=== PATIENT | male | born 1950 | race Caucasian/White ===

== ENCOUNTER → 2017-01-04 07:25 | Outpatient (CLI) | payer MEDICARE, BC | END | disposition home or self-care (01) | LOC: D.CT 07:25 | DX: R10.9 Unspecified abdominal pain (principal) ==

== ENCOUNTER 2017-01-11 21:51 | Emergency (ER) | payer MEDICARE, BC | END 2017-01-11 23:40 | disposition left against medical advice (07) | LOC: D.ER 21:51 | DX: R10.84 Generalized abdominal pain (principal) ==

== ENCOUNTER → 2017-02-02 08:06 | Outpatient (CLI) | payer MEDICARE, BC ==
[2017-02-03 06:13] LABS: HEPATITIS C ANTIBODY <0.1 (0.0-0.9)
[2017-02-03 09:13] LABS: ALPHA FETOPROTEIN -(TUMOR MRK) 3.5 ng/mL (0.0-8.3)
== END | disposition home or self-care (01) ==
LOC: D.LAB 08:06 → D.RAD 08:45 → D.US 09:00 → D.NM 09:30
PROVIDERS: Internal Medicine Gastroenterology
DX: K85.90 Acute pancreatitis without necrosis or infection, unspecified (principal); R10.11 Right upper quadrant pain; K76.89 Other specified diseases of liver; C61 Malignant neoplasm of prostate; R93.8 Abnormal findings on diagnostic imaging of other specified body structures; K59.00 Constipation, unspecified

== ENCOUNTER → 2017-08-27 07:55 | Outpatient (CLI) | payer MEDICARE, BC | END | disposition home or self-care (01) | LOC: D.US 07:55 | DX: K82.4 Cholesterolosis of gallbladder (principal) ==

== ENCOUNTER → 2017-12-24 10:32 | Outpatient (CLI) | payer MEDICARE, BC ==
[~2017-12-24 10:32] MED LIST: ASPIRIN EC81 M1 PO; FENOFIBRATE160 MG PO; HYDROCODONE-APA1 TAB PO; LOTREL 10-40 M1 EACH PO; MULTIPLE VITAMI1 TA1 PO; TOPROL XL100 MG PO; ZANTAC150 MG PO; ZOCOR40 MG PO
[2018-01-17 08:01] VITALS: BMI 30.3
== END | disposition home or self-care (01) ==
LOC: D.US 10:32
DX: N50.9 Disorder of male genital organs, unspecified (principal)

== ENCOUNTER 2018-01-17 06:50 | Day surgery (SDC) | payer MEDICARE, BC ==
[2018-01-16 13:38] LABS: BASOPHILS 0.2 % (0-2); EOSINOPHILS 2.2 % (0-7); HEMATOCRIT 39.8 % (42.0-54.0); HEMOGLOBIN 13.2 g/dL (13.5-17.5); IMMATURE GRANULOCYTES 0.2 % (0-5); LYMPHOCYTES 34.6 % (15-50); MCH 25.3 pg (26.0-34.0); MCHC 33.2 g/dL (31.0-37.0); MCV 76.2 fL (80.0-100.0); MEAN PLATELET VOLUME 10.1 fL (7.4-10.4); MONOCYTES 7.3 % (2-11); NEUTROPHILS 55.5 % (40-80); PLATELET COUNT 128 10x3/uL (130-400); RBC 5.22 10x6/uL (4.20-6.10); RDW 14.5 % (11.5-14.5); WBC 5.5 10x3/uL (4.8-10.8)
[2018-01-16 13:52] LABS: ANION GAP 14.7 mmol/L (8-16); CALCIUM 8.5 mg/dL (8.5-10.1); CARBON DIOXIDE 23.3 mmol/L (21.0-32.0); CREATININE - SERUM 1.6 mg/dL (0.6-1.3)
[~2018-01-17] VITALS: Ht 175.3 cm; Wt 93.0 kg
--- NOTE | ~2018-01-17 | OP ---
PATIENT NAME: MARTHA SPICER MEDICAL RECORD: [id number] :50 LOCATION:[facility] ADMISSION DATE: SURGEON: AURELIANO BAY MD DATE OF OPERATION: 01/17/2018 PREOPERATIVE DIAGNOSES: 1. Umbilical hernia. 2. Right inguinal hernia. 3. Hypertension. 4. Hyperlipidemia. 5. Chronic pancreatitis. POSTOPERATIVE DIAGNOSES: 1. Umbilical hernia. 2. Right inguinal hernia. 3. Hypertension. 4. Hyperlipidemia. 5. Chronic pancreatitis. PROCEDURE: 1. Umbilical hernia repair without mesh. 2. Right inguinal hernia repair with medium PHS mesh. SURGEON: Aureliano Bay MD REPORT OF PROCEDURE: The patient's right groin and abdomen were prepped and draped in sterile fashion. A semicircular incision was made on the inferior aspect of the umbilicus. Electrocautery was used to dissect through the subcutaneous tissues and through the undersurface of the umbilicus. This freed up a fat-containing hernia sac. The hernia sac was dissected free to the fascial edges. It was noted to be about 1 cm in greatest diameter. The fatty tissue was transected using electrocautery and then placed back into the abdominal cavity. The fascial edges were then closed transversely using interrupted 0 Prolenes times 3. The umbilicus was tacked down with a single interrupted 3-0 Vicryl and the subcutaneous tissues were reapproximated with interrupted 3-0 Vicryl, 7 mL of 0.25% Marcaine without epinephrine were infused into the surrounding tissues, and the skin incision was closed with running subcutaneous 5-0 Monocryl. We then approached the right inguinal region. An oblique incision was made above the inguinal ligament. Electrocautery was used to dissect down through the subcutaneous tissues to the external oblique fascia. This fascia was opened up to the external ring using electrocautery. The spermatic cord was elevated and a Semaj was placed around it. There was no sign of a direct hernia defect, but there was a fat containing indirect hernia defect. This was high ligated with 3-0 silk tie. We then placed this back into the abdominal cavity. An opening was made in the inguinal floor. The preperitoneal space of Retzius was opened up in all directions and a medium PHS mesh was inserted. This was sutured down on all 4 sides using multiple interrupted 0 Vicryls. The ilioinguinal nerve was then found and high ligated. The wound was then irrigated out with normal saline and care was taken to assure there is no sign of any active bleeding. The external oblique fascia was then closed with running 2-0 Vicryl, Adam's was closed with interrupted 3-0 Vicryls, and the skin was closed with running subcutaneous 5-0 Monocryl. A total of 10 mL of 0.25% Marcaine with epinephrine was infused into the surrounding tissues and the 2 wounds were dressed appropriately. OPERATIVE REPORT [id number] MARTHA SPICER COMPLICATIONS: None. CONDITION: Stable. ANESTHESIA: General endotracheal and local. BLOOD LOSS: Minimal. TRANSINT:[id number] Voice Confirmation ID: [id number] DOCUMENT ID: [id number] AURELIANO BAY MD at 0804 CC: SAFIA RODRIGUEZ DO [id number] DICTATION DATE: 01/17/18 1024 [employer] LASTER: 01/17/18 1215 [facility] 01/17/18 [id number] [place] [address]
[~2018-01-17 06:50] MED LIST changes: -HYDROCODONE-APA1 TAB PO
[2018-01-17 08:01] VITALS: BP 119/70; Ht 175.3 cm; Wt 93.0 kg
[2018-01-17] MEDS ORDERED: HYDROCODONE-APA1 TAB PO (10:18)
== END 2018-01-17 12:20 | disposition home or self-care (01) ==
LOC: D.OPS 06:50 → D.PAN 09:05 → D.OPS 09:05 → D.PAN 09:15 → D.OPS 12:20
PROVIDERS: Surgery
DX: K42.9 Umbilical hernia without obstruction or gangrene (principal); K40.90 Unilateral inguinal hernia, without obstruction or gangrene, not specified as recurrent; K86.1 Other chronic pancreatitis; I10 Essential (primary) hypertension; E78.5 Hyperlipidemia, unspecified; Z01.812 Encounter for preprocedural laboratory examination

== ENCOUNTER 2018-03-29 14:48 | Emergency (ER) | payer MEDICARE, BC ==
[~2018-03-29] VITALS: Ht 175.3 cm; Wt 88.6 kg
[~2018-03-29 14:48] MED LIST changes: +HYDROCODONE-APA1 TAB PO
[2018-03-29 15:14] VITALS: BP 142/71; Ht 175.3 cm; Wt 88.6 kg
[2018-03-29 15:57] LABS: BASOPHILS 0.2 % (0-2); EOSINOPHILS 1.4 % (0-7); HEMATOCRIT 39.9 % (42.0-54.0); HEMOGLOBIN 13.4 g/dL (13.5-17.5); IMMATURE GRANULOCYTES 0.1 % (0-5); LYMPHOCYTES 21.7 % (15-50); MCH 25.7 pg (26.0-34.0); MCHC 33.6 g/dL (31.0-37.0); MCV 76.4 fL (80.0-100.0); MEAN PLATELET VOLUME 10.6 fL (7.4-10.4); MONOCYTES 6.4 % (2-11); NEUTROPHILS 70.2 % (40-80); PLATELET COUNT 139 10x3/uL (130-400); RBC 5.22 10x6/uL (4.20-6.10); WBC 8.1 10x3/uL (4.8-10.8)
[2018-03-29 16:29] LABS: ANION GAP 15.1 mmol/L (8-16); BILIRUBIN - TOTAL 0.53 mg/dL (0.2-1.3); CALCIUM 9.1 mg/dL (8.5-10.1); CARBON DIOXIDE 24.9 mmol/L (21.0-32.0); CREATININE - SERUM 1.6 mg/dL (0.6-1.3); PROTEIN - SERUM 7.2 g/dL (6.4-8.2)
== END 2018-03-29 18:23 | disposition left against medical advice (07) ==
LOC: D.ER 14:48
PROVIDERS: Emergency Medicine
DX: R10.9 Unspecified abdominal pain (principal)

== ENCOUNTER → 2018-04-10 07:14 | Outpatient (CLI) | payer MEDICARE, BC ==
[2018-03-29 15:14] VITALS: BMI 28.8
== END | disposition home or self-care (01) ==
LOC: D.CT 07:14
DX: R10.9 Unspecified abdominal pain (principal)

== ENCOUNTER → 2018-09-26 16:44 | Outpatient (CLI) | payer MEDICARE, BC ==
[2018-03-29 15:14] VITALS: BMI 28.8
[2018-09-26 17:20] LABS: CHOL - HDL RATIO 3.8 ratio (2.3-4.9)
== END | disposition home or self-care (01) ==
LOC: D.LABREF 16:44
PROVIDERS: Internal Medicine Interventional Cardiology
DX: E78.5 Hyperlipidemia, unspecified (principal)